=== PATIENT | male | born 1995 | race African-American/Black ===

== ENCOUNTER 2022-03-19 05:06 | Emergency (ER) | payer SELFPAY ==
[~2022-03-19] VITALS: Ht 188 cm; Wt 73.0 kg
[2022-03-19] MEDS ORDERED: CEPHALEXIN 250MG CAPSULE PO ONE (06:15)
[2022-03-19] MEDS ORDERED: ACETAMINOPHEN 325MG TABLET PO ONE (06:15)
[2022-03-19] MEDS ORDERED: CEPH500T MT (08:29)
[2022-03-19] MEDS ORDERED: IBUP-2029 MT (08:29)
[2022-03-19 08:40] VITALS: BP 118/89
== END 2022-03-19 08:41 | disposition home or self-care (01) ==
LOC: ER 05:06
DX: L03.115 Cellulitis of right lower limb (principal); R03.0 Elevated blood-pressure reading, without diagnosis of hypertension
CPT/HCPCS: 93971; 99284